=== PATIENT | male | born 1935 | race African-American/Black ===

== ENCOUNTER 2025-02-14 08:25 | Inpatient (IN) | payer OTHER ==
[~2025-02-14] VITALS: Ht 170.2 cm; Wt 79.8 kg
[2025-02-14] MEDS: ASPIRIN 325MG TABLET PO ONE (09:27)
[2025-02-14 10:04] LABS: BASOPHILS % 0.8 % (0.0-2.0); EOSINOPHILS % 3.9 % (0.0-5.0); HEMATOCRIT. 35.4 % (42.0-52.0); HEMOGLOBIN. 11.3 g/dL (14.0-18.0); LYMPHOCYTES % 24.5 % (20.0-50.0); MEAN PLATELET VOLUME 9.0 fl (7.4-10.4); MONOCYTES % 9.1 % (2.0-8.0); NEUTROPHILS % 61.7 % (40.0-76.0); PLATELET 224 x1000/uL (130-400); RED BLOOD CELL COUNT 3.81 mill/uL (4.7-6.1); RED CELL DISTRIBUTION WIDTH 15.8 % (11.6-14.6)
[2025-02-14 10:59] LABS: CREATININE 2.4 mg/dL (0.6-1.3); UREA NITROGEN BLOOD 45 mg/dL (9-23)
[2025-02-14 11:00] LABS: TROPONIN I HIGH SENSITIVITY < 4 ng/L (3.0-53)
[2025-02-14 11:30] VITALS: BP 134/75; PULSE 66; RESP 16; TEMP 36.4
[2025-02-14] MEDS ORDERED: NIFE-33 PO (13:14)
[2025-02-14] MEDS ORDERED: GABA-529 PO (13:14)
[2025-02-14] MEDS ORDERED: CLONIDINE 0.1MG TABLET PO PRN (13:15)
[2025-02-14] MEDS ORDERED: IPRATROPIUM/ALBUTEROL 0.5-3(2.5)MG/3ML NEB NEB PRN (13:15)
[2025-02-14] MEDS ORDERED: ONDANSETRON HCL 4MG/2ML INJ IV PRN (13:15)
[2025-02-14] MEDS ORDERED: DEXTROSE 50% WATER 50ML SYRINGE IV PRN (13:15)
[2025-02-14] MEDS ORDERED: HYDROCODONE/ACETAMINOPHEN 5/325MG TABLET PO PRN (13:15)
[2025-02-14] MEDS ORDERED: MAGNESIUM/ALUMINUM HYDROXIDE/SIMETHICONE 30ML UDC PO PRN (13:15)
[2025-02-14] MEDS ORDERED: ACETAMINOPHEN 325MG TABLET PO PRN (13:15)
[2025-02-14] MEDS ORDERED: NALOXONE HCL 0.4MG/ML VIAL IV PRN (13:30)
[2025-02-14 16:00] VITALS: BP 174/80; PULSE 62; RESP 16; TEMP 36.7
[2025-02-14] MEDS: ENOXAPARIN 30MG/0.3ML SYR SUBCUT SCH (16:10)
[2025-02-14] MEDS: INSULIN LISPRO 100 UNITS/ML SUBCUT SCH (16:11)
[2025-02-14] MEDS: BLOOD SUGAR DIAGNOSTIC STRIP TEST SCH (16:11)
[2025-02-14] MEDS: SODIUM CHLORIDE 0.9% 1,000 ML IV SCH (16:12)
[2025-02-14] MEDS ORDERED: MEMA5TAB16 PO (16:24)
[2025-02-14] MEDS ORDERED: TAMS-54 MT (16:24)
[2025-02-14] MEDS ORDERED: ROSU40TA MT (16:24)
[2025-02-14] MEDS ORDERED: INSU100I28 SQ (16:24)
[2025-02-14 16:25] VITALS: BP 174/80; PULSE 62; RESP 18; TEMP 36.7
[2025-02-14] MEDS: NIFEDIPINE XL 60MG TAB PO NR (17:22)
[2025-02-14 20:00] VITALS: BP 139/102; PULSE 83; RESP 18; TEMP 36.3
[2025-02-15] VITALS: BP 175/87; PULSE 94; RESP 18; TEMP 36.2; O2SAT 100
[2025-02-15 00:55] LABS: TRIGLYCERIDE 107 mg/dL (0-150)
[2025-02-15 00:56] LABS: LDL CHOLESTEROL 68 mg/dL (5-100); TROPONIN I HIGH SENSITIVITY 4 ng/L (3.0-53)
[2025-02-15 04:00] VITALS: BP 141/70; PULSE 88; RESP 18; TEMP 36.4; O2SAT 100
[2025-02-15] MEDS: HYDRALAZINE HCL 25MG TABLET PO SCH (06:49)
[2025-02-15] MEDS: TAMSULOSIN HCL 0.4MG SR CAPSULE PO SCH (08:55)
[2025-02-15] MEDS: NIFEDIPINE XL 60MG TAB PO SCH (08:56)
[2025-02-15] MEDS: ASPIRIN 81MG TABLET PO SCH (08:56)
[2025-02-15] MEDS: PANTOPRAZOLE SODIUM 40 MG/VIAL IV SCH (09:00)
[2025-02-15] MEDS: REGADENOSON 0.4 MG/5 ML IV SCH (11:00)
[2025-02-15 12:00] VITALS: BP 138/76; PULSE 87; RESP 18; TEMP 36.3; O2SAT 100
[2025-02-15] MEDS ORDERED: LIP40 PO (14:47)
[2025-02-15] MEDS ORDERED: ASPI-1160 PO (14:47)
[2025-02-15 16:09] VITALS: BP 140/65; PULSE 74; TEMP 97.9; O2SAT 97
[2025-02-15] MEDS ORDERED: ATORVASTATIN CALCIUM 40MG TABLET PO SCH (21:00)
== END 2025-02-15 18:39 | disposition home or self-care (01) | DRG 311 ==
LOC: EDBD 08:25 → ER 08:25 → EDBEDREQ 08:43 → ENRESERV 10:44 → CANRESERV 10:44 → ENRESERV 10:46 → 5WST 11:11
PROVIDERS: ADMIT Internal Medicine; ATTEND Internal Medicine
DX: I20.0 Unstable angina (principal); I13.0 Hypertensive heart and chronic kidney disease with heart failure and stage 1 through stage 4 chronic kidney disease, or unspecified chronic kidney disease; I50.42 Chronic combined systolic (congestive) and diastolic (congestive) heart failure; N17.9 Acute kidney failure, unspecified; N18.9 Chronic kidney disease, unspecified; E11.22 Type 2 diabetes mellitus with diabetic chronic kidney disease; I48.91 Unspecified atrial fibrillation; N40.0 Benign prostatic hyperplasia without lower urinary tract symptoms; Z74.01 Bed confinement status; Z85.46 Personal history of malignant neoplasm of prostate; Z86.73 Personal history of transient ischemic attack (TIA), and cerebral infarction without residual deficits; Z95.0 Presence of cardiac pacemaker
CPT/HCPCS: 36415; 71045; 80048; 80061; 80305; 82962; 84484; 85025; 93005; 93970; 99285; A4606; J1650; J1815; J7030